=== PATIENT | female | born 1960 | race Caucasian/White ===

== ENCOUNTER 2018-04-01 07:15 | Day surgery (SDC) | payer OTHER ==
[2018-04-01 07:52] LABS: ADD MAN DIFF? NO
[2018-04-01 07:56] LABS: WHITE BLOOD COUNT 4.9 10^3/ul (4.8-10.8)
[2018-04-01 07:56] LABS: BASOPHIL # 0.1 10^3/ul (0.0-0.1); EOSINOPHILS # 0.1 10^3/ul (0.0-0.5); EOSINOPHILS % 1.6 % (0.0-7.0); HEMATOCRIT 42.7 % (37.0-47.0); HEMOGLOBIN 14.3 g/dl (12.0-16.0); LYMPHOCYTES # 1.4 10^3/ul (0.8-2.9); LYMPHOCYTES % 28.7 % (15.0-51.0); MEAN CORPUSCULAR HEMOGLOBIN 29.3 pg (29.0-33.0); MEAN CORPUSCULAR HGB CONC 33.5 g/dl (32.0-37.0); MEAN CORPUSCULAR VOLUME 87.5 fl (82.0-101.0); MEAN PLATELET VOLUME 9.5 fl (7.4-10.4); MONOCYTE # 0.3 10^3/ul (0.3-0.9); MONOCYTES % 6.9 % (0.0-11.0); NEUTROPHILS % 61.6 % (39.0-77.0); PLATELET COUNT 270 10^3/UL (140-415); RED BLOOD COUNT 4.88 10^6/ul (4.20-5.40); RED CELL DISTRIBUTION WIDTH 11.9 % (11.5-14.5)
[2018-04-01 08:15] LABS: INR 0.97
[2018-04-01 08:16] LABS: PARTIAL THROMBOPLASTIN TIME 29.2 Sec (23.0-35.0)
[2018-04-01 08:17] LABS: ANION GAP 11 (5-13); BLOOD UREA NITROGEN 13 mg/dl (7-20); CALCIUM 9.3 mg/dl (8.4-10.2); CARBON DIOXIDE 25 mmol/L (21-31); CHLORIDE 106 mmol/L (97-110); CHOL/HDL RATIO 6.2 RATIO; CHOLESTEROL 217 mg/dl (100-200); CREATININE 0.55 mg/dl (0.44-1.00); Estimated GFR > 60 mL/min (>60); GLUCOSE 114 mg/dl (70-220); HDL CHOLESTEROL 35 mg/dl (35-98); LDL CHOLESTEROL,CALCULATED 112 mg/dl; POTASSIUM 3.6 mmol/L (3.5-5.1); SODIUM 142 mmol/L (135-144); TRIGLYCERIDES 352 mg/dl (0-149)
[2018-04-01] MEDS ORDERED: SOD CHLORIDE 0.45% 1,000 ML IV (08:30)
[2018-04-01] MEDS ORDERED: DIPHENHYDRAMINE 50 MG CAP PO (08:30)
[2018-04-01] MEDS ORDERED: DIAZEPAM 5 MG TAB PO (08:30)
[2018-04-01] MEDS ORDERED: FAMOTIDINE 20 MG TAB PO (08:30)
[2018-04-01] MEDS ORDERED: IODIXANOL LOCM 100 ML BTL (08:38)
[2018-04-01] MEDS ORDERED: FENTAnyl 50 MCG/ML VIAL (08:38)
[2018-04-01] MEDS ORDERED: HEPARIN 1000 UNITS/ML 10 ML INJ (08:38)
[2018-04-01] MEDS ORDERED: LIDOCAINE 2% (MDV) 20 ML INJ (08:38)
[2018-04-01] MEDS ORDERED: NITROGLYCERIN (IC) 100 MCG/ML INJ (08:38)
[2018-04-01] MEDS ORDERED: VERAPAMIL 5 MG INJ (08:38)
[2018-04-01] MEDS ORDERED: MIDAZOLAM 1 MG/ML 2 ML INJ (08:38)
[2018-04-01] MEDS ORDERED: SOD CHLORIDE 0.9% 500 ML (08:38)
[2018-04-01] MEDS ORDERED: ATROPINE 1 MG/10 ML SYRINGE (10:18)
[2018-04-01] MEDS ORDERED: ACETAMINOPHEN 325 MG TAB PO (10:30)
[2018-04-01] MEDS ORDERED: AL HYDROX/MG HYDROX/SIMETH 30 ML CUP PO (10:30)
[2018-04-01] MEDS ORDERED: ONDANSETRON 4 MG INJ IV (10:30)
[2018-04-01] MEDS ORDERED: morphine 2 MG INJ IV (10:30)
[2018-04-01] MEDS: SOD CHLORIDE 0.9% 1,000 ML IV (11:27)
== END 2018-04-01 15:20 | disposition home or self-care (01) ==
LOC: SDS 07:15
DX: R07.89 Other chest pain (principal); I87.2 Venous insufficiency (chronic) (peripheral); I10 Essential (primary) hypertension; I73.9 Peripheral vascular disease, unspecified
CPT/HCPCS: 71045; 80048; 80061; 85025; 85610; 85730; 93005; 93458